=== PATIENT | male | born 1955 | race Hispanic/Latino ===

== ENCOUNTER → 2018-07-18 | Outpatient (CLI) | payer BC ==
[~2018-07-18] MED LIST: ASPIRIN PO; ATORVASTATIN PO; CARB4TAB PO; FISH OIL PO; FLUTICASONE NASAL; FOLI1TAB15 PO; MELO-106 PO; MELOXICAM; METF-444 PO; METO50TA18 PO; VIT B12 PO
== END | disposition home or self-care (01) ==
LOC: SHCH 09:39
PROVIDERS: ATTEND Internal Medicine Cardiovascular Disease
DX: I51.7 Cardiomegaly (principal); I25.5 Ischemic cardiomyopathy
CPT/HCPCS: 93306

== ENCOUNTER 2020-06-24 08:30 | Day surgery (SDC) | payer BC ==
[2020-06-21 13:27] LABS: BASOPHILS % (AUTO) 0.8 % (0.0-5.0); EOSINOPHILS % (AUTO) 4.2 % (0.0-8.0); HEMATOCRIT 42.9 % (42-54); LYMPHOCYTES % (AUTO) 45.6 % (21.0-51.0); MEAN CORPUSCULAR HEMOGLOBIN 28.8 pg (27.0-33.0); MEAN CORPUSCULAR HGB CONC 34.7 g/dL (32.0-36.0); MEAN CORPUSCULAR VOLUME 82.8 fL (79-99); NEUTROPHILS % (AUTO) 40.2 % (40.0-77.0); PLATELET COUNT (AUTO) 173 K/uL (130-400); RED BLOOD CELL COUNT(AUTO) 5.18 MIL/uL (4.50-6.20); RED CELL DISTRIBUTION WIDTH 12.3 % (11.0-15.5); WHITE BLOOD COUNT (AUTO) 5.2 K/uL (4.8-10.8)
[2020-06-21 13:36] LABS: CREATININE 0.7 mg/dL (0.5-1.5); POTASSIUM 3.9 mmol/L (3.5-5.1)
[2020-06-21 13:37] LABS: INR 1.1 (0.85-1.15); PROTHROMBIN TIME 11.9 SEC (9.6-11.6)
[2020-06-21 13:38] LABS: PARTIAL THROMBOPLASTIN TIME 28.5 SEC (26.3-35.5)
[2020-06-23 14:10] VITALS: BP 145/77
[2020-06-24] VITALS (12 sets, daily range): BP systolic 124–151; BP diastolic 66–88
[~2020-06-24] VITALS: Ht 170.2 cm; Wt 97.1 kg
[~2020-06-24 08:30] MED LIST changes: +CYAN200018 PO; -FISH OIL PO; +LOSA50TA64 PO; -MELO-106 PO; -MELOXICAM; +OMEG100014 PO; +SODIUM CHLORIDE 0.9% 1000ML 1,000 ML IV SCH; +TAMS-1 PO; -VIT B12 PO
[2020-06-24] MEDS ORDERED: BUPIVACAINE/PF 0.25% 30ML VIAL IJ ONE (09:11)
[2020-06-24] MEDS ORDERED: IOHEXOL-350 50ML VIAL IV ONE (09:11)
[2020-06-24] MEDS ORDERED: CEFAZOLIN SODIUM 1 GM VIAL ONE (09:11)
[2020-06-24] MEDS ORDERED: MIDAZOLAM HCL 1 MG/ML 2ML VIAL ONE ×3 (09:12→10:01)
[2020-06-24] MEDS ORDERED: MEPERIDINE-PF 25 MG/ML SYG ONE ×3 (09:12→10:00)
[2020-06-24] MEDS ORDERED: LIDOCAINE HCL 1% MDV 50ML VIAL ONE (09:12)
[2020-06-24] MEDS ORDERED: ONDANSETRON HCL 4 MG/2 ML VIAL IV PRN (11:00)
[2020-06-24] MEDS ORDERED: ACETAMINOPHEN-CODEINE 300/30MG TAB PO PRN ×2 (11:00)
[2020-06-24] MEDS ORDERED: DOXY100C2 PO (13:05)
[2020-06-24] MEDS ORDERED: CEFAZOLIN SODIUM 1 GM VIAL IVP SCH (15:30)
== END 2020-06-24 16:58 | disposition home or self-care (01) ==
LOC: DAH 08:30
PROVIDERS: ATTEND Internal Medicine Cardiovascular Disease
DX: I25.5 Ischemic cardiomyopathy (principal); I25.10 Atherosclerotic heart disease of native coronary artery without angina pectoris; I11.0 Hypertensive heart disease with heart failure; I50.42 Chronic combined systolic (congestive) and diastolic (congestive) heart failure; E11.9 Type 2 diabetes mellitus without complications; E78.00 Pure hypercholesterolemia, unspecified; Z95.1 Presence of aortocoronary bypass graft; Z79.01 Long term (current) use of anticoagulants; Z79.84 Long term (current) use of oral hypoglycemic drugs; Z79.899 Other long term (current) drug therapy
CPT/HCPCS: 33249; 36415; 71045; 80048; 82948; 85025; 85610; 85730; 93005; A4215; A4216; A4221; A4222; A4223 ×3; A4606; A4663; C1721; C1894; C1895; C1896; J0690 ×2; J2175 ×2; J2250 ×2; J3490 ×2; J7030; 99156; 99157; Q9967

== ENCOUNTER → 2022-06-06 | Outpatient (CLI) | payer BC ==
[~2022-06-06] MED LIST changes: +DOXY100C5 PO; +REGADENOSON 0.4 MG/5 ML PF SYG IVP SCH; -SODIUM CHLORIDE 0.9% 1000ML 1,000 ML IV SCH
== END | disposition home or self-care (01) ==
LOC: SHCH 08:50
PROVIDERS: ATTEND Internal Medicine Cardiovascular Disease
DX: I25.10 Atherosclerotic heart disease of native coronary artery without angina pectoris (principal)
CPT/HCPCS: 78452; 96374; 93017; J2785; A9500 ×2

== ENCOUNTER → 2022-07-17 | Outpatient (CLI) | payer BC ==
[~2022-07-17] MED LIST changes: -REGADENOSON 0.4 MG/5 ML PF SYG IVP SCH
== END | disposition home or self-care (01) ==
LOC: SHCH 09:46
PROVIDERS: ATTEND Internal Medicine Cardiovascular Disease
DX: I35.0 Nonrheumatic aortic (valve) stenosis (principal); I25.5 Ischemic cardiomyopathy; I10 Essential (primary) hypertension; E78.5 Hyperlipidemia, unspecified; E11.9 Type 2 diabetes mellitus without complications
CPT/HCPCS: 93306

== ENCOUNTER → 2024-04-08 | Outpatient (CLI) | payer MEDICARE, BC ==
--- NOTE | 2024-04-10 07:55 | HMCSR ---
APPROVED REPORT EXAM: Two-dimensional and M-mode echocardiogram with Doppler and color Doppler. INDICATION ICD: I10.0 Essential (primary) Hypertension 2D Dimensions RVDd5.5 cmLVEF(%)45.8 (>50%)LVED Vol(simp.)221.0 mL IVSd1.0 (0.7-1.1cm)FS(%)23 %LVES Vol(simp.)121.0 mL LVDd6.1 (3.8-5.6cm)Ao Root(2D)3.6 (2.0-3.7cm)LVEF(%, simp.)45 % PWd1.1 (0.7-1.1cm)LVOT diam2.7 (1.8-2.4cm)LA ESV INDEX (BP)42.94 mL/m2 LVDs4.7 (2.5-4.0cm)IVC diam1.6 cm Aortic Valve AoV Vmax2.5 m/Erika Peak GR25.5 mmHgLVOT Vmax0.7 m/s AoV VTI0.6 mAo Mean GR15.4 mmHgLVOT VTI0.15 m LONNIE (VMAX)1.6 cm2Al P1/2T711 msAVA (VTI) 1.6 cm2 Mitral Valve MV E Vmax42.2 cm/sDECEL Cvhh305 ms MV A Vmax54.8 cm/sP 1/2 T97 ms E/A ratio0.8MVA (PHT)2.3 cm2 MR Max PG67 mmHg TDI E/E' Medial8.0E/E' Lateral5.5 Pulmonary Valve PV Vmax1.2 m/sPV VTI0.25 mPV Mean GR3 mmHg PV Peak GR5.5 mmHg Tricuspid Valve TR Vmax2.7 m/sRAP (EST) 3 lyHeUBAB11.6 mmHg TR Peak GR28.6 mmHg Left Ventricle The left ventricle is moderately dilated. There is borderline to mild left ventricular hypertrophy. L VEF is 40-45%. No left ventricle thrombus noted on this study. Grade 1 diastolic dysfunction Right Ventricle The right ventricle is moderately to severely dilated. Right ventricular systolic function is moderat kushal reduced. Atria The left atrium is severely dilated. The right atrium is moderately dilated. Aortic Valve Aortic valve is trileaflet. The aortic valve is calcified and displays decreased opening. Moderate ao rtic regurgitation. Calculated aortic valve area is 1.6 cm2 with maximum pressure gradient of 25.5 mm Hg and mean pressure gradient of 15.4 mmHg. Mitral Valve The mitral valve is mildly thickened. Mitral annular calcification is borderline. Mitral regurgitatio n is trace to mild. There is no mitral valve stenosis. Tricuspid Valve The tricuspid valve leaflets appear normal. There is mild tricuspid regurgitation. Right ventricular systolic pressure is estimated at 30-40 mmHg. Pulmonic Valve The pulmonic valve is mildly sclerotic but open well. There is trace pulmonic valvular regurgitation. Great Vessels The aortic root is normal in size. The IVC is normal in size and collapses >50% with inspiration. Pericardium No pericardial effusion. Conclusion The left ventricle is moderately dilated. There is borderline to mild left ventricular hypertrophy. LVEF is 40-45%. Grade 1 diastolic dysfunction The right ventricle is moderately to severely dilated. Right ventricular systolic function is moderately reduced. The left atrium is severely dilated. The right atrium is moderately dilated. Aortic valve is trileaflet. The aortic valve is calcified and displays decreased opening. Moderate aortic regurgitation. Calculated aortic valve area is 1.6 cm2 with maximum pressure gradient of 25.5 mmHg and mean pressure gradient of 15.4 mmHg. The mitral valve is mildly thickened. Mitral annular calcification is borderline. Mitral regurgitation is trace to mild. There is no mitral valve stenosis. There is mild tricuspid regurgitation. Right ventricular systolic pressure is estimated at 30-40 mmHg. There is trace pulmonic valvular regurgitation. The aortic root is normal in size. The IVC is normal in size and collapses >50% with inspiration. No pericardial effusion.
== END | disposition home or self-care (01) ==
LOC: SHCH 08:32
PROVIDERS: ATTEND Internal Medicine Cardiovascular Disease
DX: I10 Essential (primary) hypertension (principal)
CPT/HCPCS: 93306